=== PATIENT | male | born 1995 | race Caucasian/White ===

== ENCOUNTER 2017-08-05 12:54 | Emergency (ER) | payer SELFPAY ==
--- NOTE | 2017-08-05 13:25 | ERPHSYRPT ---
- History of Present Illness Time Seen by Provider: 08/05/17 13:18 Source: patient Exam Limitations: no limitations Patient Subjective Stated Complaint: pt here for cough and burning in chest when cold air outside hits him, hes family at home are ill, co cough, sob at times. no fever Triage Nursing Assessment: pt alert, walked in, resp easy chest clear, skin w/d pink Physician History: 21-year-old white male arrives with complaint of cough burning in the anterior chest with a deep breathing symptoms since yesterday he denies any fevers no nausea no vomiting states he feels short of breath at time. Past medical history negative. Past surgical history myringotomy tubes Social history positive for tobacco use, occasional alcohol use Timing/Duration: yesterday Cough Quality/Degree: mild Possible Cause: no prior episodes Modifying Factors: Improves With: nothing, other (cold air outside) Associated Symptoms: cough, shortness of breath, other (burning anterior chest with deep breathing), No fever, No chills, No chest pain/soreness, No dizziness , No earache, No facial pain, No headache, No lightheadedness, No muscle aches, No nasal congestion, No nasal drainage, No sinus infection, No sore throat, No wheezing Allergies/Adverse Reactions: ibuprofen [From Motrin] Adverse Reaction (Verified 08/05/17 12:59) Home Medications: No Home Meds [No Home Meds] 1 [facility] 04/23/15 [History] Hx Tetanus, Diphtheria Vaccination/Date Given: Yes (up to date) Hx Influenza Vaccination/Date Given: No Hx Pneumococcal Vaccination/Date Given: No Immunizations Up to Date: Yes - Review of Systems Constitutional: No Fever, No Chills Eyes: No Symptoms Ears, Nose, & Throat: No Symptoms, No Ear Pain, No Ear Discharge, No Hearing Changes, No Tinnitus, No Nose Pain, No Nose Congestion, No Nose Discharge, No Sinus Drainage, No Epistaxis, No Mouth Pain, No Mouth Swelling, No Loose Teeth, No Throat Pain, No Throat Swelling, No Hoarse, No Painful Swallowing, No Snoring , No Stridor Respiratory: Cough, Dyspnea Cardiac: Other (burning anterior chest with deep breathing) Abdominal/Gastrointestinal: No Abdominal Pain, No Nausea, No Vomiting, No Diarrhea Genitourinary Symptoms: No Dysuria Musculoskeletal: No Back Pain, No Neck Pain Skin: No Rash Neurological: No Dizziness, No Focal Weakness, No Sensory Changes Psychological: No Symptoms Endocrine: No Symptoms All Other Systems: Reviewed and Negative - Past Medical History Pertinent Past Medical History: No - Past Surgical History Past Surgical History: Yes Other Surgical History: tubes in ears - Social History Smoking Status: Current every day smoker Exposure to second hand smoke: Yes Drug Use: none Patient Lives Alone: No - Nursing Vital Signs Nursing Vital Signs: Initial Vital Signs Temperature 97.9 F 08/05/17 13:00 Pulse Rate 66 08/05/17 13:00 Respiratory Rate 16 08/05/17 13:00 Blood Pressure 144/76 08/05/17 13:00 O2 Sat by Pulse Oximetry 99 08/05/17 13:00 Pain Scale Pain Intensity 0 - Physical Exam General Appearance: no apparent distress, alert Eye Exam: PERRL/EOMI, eyes nml inspection Ears, Nose, Throat Exam: normal ENT inspection, TMs normal, pharynx normal, moist mucous membranes Neck Exam: normal inspection, non-tender, supple, full range of motion Respiratory Exam: normal breath sounds, lungs clear, No respiratory distress Cardiovascular Exam: regular rate/rhythm, normal heart sounds Gastrointestinal/Abdomen Exam: soft, No tenderness Back Exam: normal inspection, No CVA tenderness, No vertebral tenderness Extremity Exam: normal inspection, normal range of motion Neurologic Exam: alert, oriented x 3, cooperative, 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, normal mood/affect, sensation nml, No motor deficits Skin Exam: normal color, warm, dry, No rash Lymphatic Exam: No adenopathy SpO2 Interpretation: normal (99%) SpO2: 99 Oxygen Delivery: Room Air - Course Nursing assessment & vital signs reviewed: Yes - Radiology Exams Chest X-ray Interpretation: Discussed w/ radiologist, Other (chest x-ray: Normal heart , lung, and bony thorax) Ordered Tests: Active Orders 24 hr Category Date Time Status CHEST 1 VIEW (PORTABLE) Stat Exams 08/05/17 13:22 Completed - Progress Progress: improved Air Movement: fair Progress Note: 08/05/17 13:41 21-year-old previously healthy white male arrives with complaint of cough worse with going outside symptoms since yesterday. He states he's had several family members that have been ill. He is not running a high fever no vomiting. Patient does smoke. Chest x-ray no acute disease process noted. Will send patient home diagnosis viral bronchitis. Viral syndrome - Departure Time of Disposition: 13:44 Departure Disposition: Home Clinical Impression: Viral bronchitis, Viral syndrome Condition: Fair Critical Care Time: No Referrals: DOCTOR,NO FAMILY [Primary Care Provider] - Instructions: Cough -- Adult Additional Instructions: Return home. Plenty of fluids. OTC cough medications as needed and directed. Tylenol every 4 hours as needed for temperature greater than 100.5 or pain. Motrin every 6 hours as needed for temperature greater than 100.5 or pain. Follow-up with your family symptoms are worse, no better in 24-48 hours or persist longer than one week. Return for acute distress or for severe symptoms. Stop smoking.
--- NOTE | 2017-08-05 13:41 | XRAY ---
Indication: Pain and burning. Cough and short of breath. Comparison: None Portable chest demonstrates normal heart, lungs, and bony thorax.
[2017-08-05 13:59] VITALS: BP 154/80; PULSE 70; O2SAT 96
== END 2017-08-05 13:59 | disposition home or self-care (01) ==
LOC: ED 12:54
DX: J20.8 Acute bronchitis due to other specified organisms (principal); B34.9 Viral infection, unspecified; Z72.0 Tobacco use
CPT/HCPCS: 71010; 99282

== ENCOUNTER 2018-01-25 10:30 | Emergency (ER) | payer BC ==
[2018-01-25 10:39] VITALS: BP 151/101; PULSE 73; O2SAT 99
--- NOTE | 2018-01-25 10:48 | ERPHSYRPT ---
- History of Present Illness Time Seen by Provider: 01/25/18 10:43 Source: patient Exam Limitations: no limitations Patient Subjective Stated Complaint: fell and caught himself yesterday evening with left hand Triage Nursing Assessment: pt alert nad orientedx3, ambualtes well gait is stead left duyen in extremely swollen, radial pulse present, cap reill immediate swollen out by thumb and 2nd digit Physician History: The patient is a 22-year-old right-handed male complaining that he slipped last night on his wet wooden deck, causing him to fall backwards onto his left hand. Today his left hand is very tender and swollen. He was over in our OB Department just prior to arrival for the imminent delivery of one of his children. The OB doctor recommended that he be seen here in the ER immediately. His past medical history is unremarkable. Occurred: yesterday Reason for Fall: slipped, fell from standing pos Injuries/Pain Location: upper extremity (left hand) Loss of Consciousness: no loss of consciousness Quality: aching, throbbing Severity of Pain-Max: severe Severity of Pain-Current: severe Modifying Factors: Improves With: nothing Allergies/Adverse Reactions: ibuprofen [From Motrin] Adverse Reaction (Verified 08/05/17 12:59) Home Medications: No Home Meds [No Home Meds] 1 [facility] 04/23/15 [History] Hx Tetanus, Diphtheria Vaccination/Date Given: Yes Hx Influenza Vaccination/Date Given: No Hx Pneumococcal Vaccination/Date Given: No Immunizations Up to Date: Yes - Review of Systems Constitutional: No Fever, No Chills Eyes: No Symptoms Ears, Nose, & Throat: No Symptoms Respiratory: No Cough, No Dyspnea Cardiac: No Chest Pain, No Edema, No Syncope Abdominal/Gastrointestinal: No Abdominal Pain, No Nausea, No Vomiting, No Diarrhea Genitourinary Symptoms: No Dysuria Musculoskeletal: Fall, Injury Skin: No Rash Neurological: No Dizziness, No Focal Weakness, No Sensory Changes Psychological: No Symptoms Endocrine: No Symptoms Hematologic/Lymphatic: No Symptoms Immunological/Allergic: No Symptoms All Other Systems: Reviewed and Negative - Past Medical History Pertinent Past Medical History: No - Past Surgical History Past Surgical History: Yes Other Surgical History: tubes in ears - Social History Smoking Status: Current every day smoker Exposure to second hand smoke: Yes Drug Use: none Patient Lives Alone: No - Nursing Vital Signs Nursing Vital Signs: Initial Vital Signs Temperature 98 F 01/25/18 10:30 Pulse Rate 73 01/25/18 10:30 Respiratory Rate 18 01/25/18 10:30 Blood Pressure 151/101 01/25/18 10:30 O2 Sat by Pulse Oximetry 99 01/25/18 10:30 Pain Scale Pain Intensity 10 - Gilbert Coma Score Best Eye Response (Anali): (4) open spontaneously Best Verbal Response (Gilbert): (5) oriented Best Motor Response (Gilbert): (6) obeys commands Anali Total: 15 - Physical Exam General Appearance: no apparent distress, alert Head Injury: no evidence of injury Eye Exam: PERRL/EOMI ENT Exam: airway nml Neck Exam: normal inspection, No tenderness Respiratory/Chest Exam: normal breath sounds, No chest tenderness, No respiratory distress Cardiovascular Exam: normal heart sounds, regular rate/rhythm Gastrointestinal Exam: soft, No tenderness, No distention, No guarding, No ecchymosis Rectal Exam: not done Back Exam: normal inspection, No vertebral tenderness Extremity Exam: limited range of motion (of left hand and wrist.), pain with movement (left hand and wrist), swelling (left thenar emminence.), tenderness ( swelling and tenderness of base of left thumb.) Neurologic Exam: alert, oriented x 3, cooperative, sensation nml, No motor deficits Skin Exam: normal color, warm, dry SpO2 Interpretation: normal SpO2: 99 Oxygen Delivery: Room Air - Radiology Exams Left Wrist X-ray Interpretation: Reviewed by , Teleradiologist Report, Negative, No Fracture (per Dr Galindo.) Left Hand X-ray Interpretation: Reviewed by me, Teleradiologist Report, Negative, No Fracture (per Dr Galindo.) Ordered Tests: Active Orders 24 hr Category Date Time Status Cold Application STAT Care 01/25/18 10:43 Active HAND (MINIMUM 3 VIEWS) Stat Exams 01/25/18 10:44 Completed WRIST (MIN 3 VIEWS) Stat Exams 01/25/18 10:44 Completed - Progress Progress: unchanged Counseled pt/family regarding: rad results - Departure Time of Disposition: 11:26 Departure Disposition: Home Clinical Impression: Sprain of left hand Condition: Stable Critical Care Time: No Referrals: DOCTOR,NO FAMILY [Primary Care Provider] - Additional Instructions: You have sprained your left hand. There are no broken bones on the x-ray. You were given Tylenol 1000 mg orally in the ER. Apply ice frequently as needed. Take Tylenol 1000 mg every 6-8 hours as needed. Follow-up as needed.
--- NOTE | 2018-01-25 11:20 | XRAY ---
Indication: Pain following fall. Comparison: None 3 views of the left hand demonstrates normal bones, articulation, and soft tissues.
--- NOTE | 2018-01-25 11:20 | XRAY ---
Indication: Pain following fall. Comparison: None 3 views of the left wrist demonstrates normal bones, articulation, and soft tissues.
[2018-01-25] MEDS ORDERED: TYLENOL EXTRA STRENGTH 500 MG PO STA (11:24)
[2018-01-25] MEDS ORDERED: TYLENOL EXTRA STRENGTH 500 MG ONE (11:27)
== END 2018-01-25 11:43 | disposition home or self-care (01) ==
LOC: ED 10:30
DX: S63.92XA Sprain of unspecified part of left wrist and hand, initial encounter (principal); W01.0XXA Fall on same level from slipping, tripping and stumbling without subsequent striking against object, initial encounter; Y92.009 Unspecified place in unspecified non-institutional (private) residence as the place of occurrence of the external cause
CPT/HCPCS: 73110; 73130; 99283; A9270-GY

== ENCOUNTER 2022-02-06 16:05 | Emergency (ER) | payer SELFPAY ==
--- NOTE | 2022-02-06 16:37 | ERPHSYRPT ---
- History of Present Illness Source: patient Exam Limitations: no limitations Patient Subjective Stated Complaint: C/O headache to mid to left side of forehead that started 6 days ago. Denies any injury to head or face. Denies falls. Triage Nursing Assessment: Patient ambulated back to ED without difficulties. No SOB. Alert and oriented and answering questions appropriately. Corner of left side of mouth noted to be drooping but patient states this is his normal state; diagnosis of mobias syndrome. Physician History: 26 yo wm w L frontal headache x 6 days. Pain is 8/10 and sharp. Tylenol makes the pain better, and nothing makes it worse. He denies trauma/N/V/neck stiffness/fever/photophobia/cough/coryza. Pt did state that he got bit by a tick on his RUE 2 wks ago, but rash/myalgias/arthralias denied. 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 Timing/Duration: other (6 days) Quality: stabbing Head Pain Location: frontal (L frontal) Severity of Pain-Max: severe Severity of Pain-Current: severe Recent Head Trauma: no recent headache/trauma Modifying Factors: Worsens With: cold therapy, exposure to light, immobilization, medication, movement, rest, noise, position Associated Symptoms: No confusion, No dizziness, No fatigue, No facial pain, No fever/chills, No flushing, No light-headedness, No loss of consciousness, No nausea/vomiting, No nasal congestion, No nasal drainage, No neck pain, No numbness in legs/feet, No rash, No sweating, No scotoma, No seizures, No sinus infection, No sensitive to light, No speech problems, No stiff neck, No trouble walking, No vision changes, No visual disturbance, No weakness Previous symptoms: no prior history Allergies/Adverse Reactions: ibuprofen [From Motrin] Adverse Reaction (Verified 02/06/22 16:11) Home Medications: No Home Meds [No Home Meds] 1 [facility] 04/23/15 [History] Hx Tetanus, Diphtheria Vaccination/Date Given: Yes Hx Influenza Vaccination/Date Given: No Hx Pneumococcal Vaccination/Date Given: No Immunizations Up to Date: Yes Travel Risk - International Travel Have you traveled outside of the country in past 3 weeks: No - Coronavirus Screening Are you exhibiting any of the following symptoms?: Yes Symptoms: Headaches/Body Aches/Fatigue Close contact with a COVID-19 positive Pt in past 14-21 Days: No - Vaccine Status Have you recieved a Covid-19 vaccination: No - Review of Systems Constitutional: No Symptoms Eyes: No Symptoms Ears, Nose, & Throat: No Symptoms Respiratory: No Symptoms Cardiac: No Symptoms Abdominal/Gastrointestinal: No Symptoms Genitourinary Symptoms: No Symptoms Musculoskeletal: No Symptoms Skin: No Symptoms Neurological: No Symptoms, Headache Psychological: No Symptoms Endocrine: No Symptoms Hematologic/Lymphatic: No Symptoms Immunological/Allergic: No Symptoms - Past Medical History Pertinent Past Medical History: Yes Neurological History: Other ENT History: No Pertinent History Cardiac History: No Pertinent History Respiratory History: No Pertinent History Endocrine Medical History: No Pertinent History Musculoskeletal History: No Pertinent History GI Medical History: No Pertinent History History: No Pertinent History Psycho-Social History: No Pertinent History Male Reproductive Disorders: No Pertinent History 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 - Past Surgical History Past Surgical History: Yes Other Surgical History: tubes in ears - Social History Smoking Status: Current every day smoker How long have you smoked: 6 years Exposure to second hand smoke: No Drug Use: none Patient Lives Alone: No Significant Family History: no pertinent family hx - Nursing Vital Signs Nursing Vital Signs: Initial Vital Signs Temperature 98.2 F 02/06/22 16:12 Pulse Rate 93 H 02/06/22 16:12 Respiratory Rate 18 02/06/22 16:12 Blood Pressure 143/86 02/06/22 16:12 O2 Sat by Pulse Oximetry 97 02/06/22 16:12 Pain Scale Pain Intensity 4 Mildly hypertensive - Physical Exam General Appearance: no apparent distress Eye Exam: PERRL/EOMI, eyes nml inspection Ears, Nose, Throat Exam: normal ENT inspection, TMs normal, pharynx normal, moist mucous membranes Neck Exam: normal inspection, non-tender, supple, full range of motion, No meningismus, No mass, No Brudzinski, No Kernig's, No carotid bruit Respiratory Exam: normal breath sounds, lungs clear, airway intact, No chest tenderness, No respiratory distress Cardiovascular Exam: regular rate/rhythm, normal heart sounds, normal peripheral pulses, capillary refill <2 sec, No murmur Gastrointestinal/Abdominal Exam: soft, normal bowel sounds, tenderness Back Exam: normal inspection, normal range of motion, No CVA tenderness, No vertebral tenderness Extremity Exam: normal inspection, normal range of motion Mental Status Exam: alert, oriented x 3, 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 Exam: normal hearing, normal speech, PERRL, facial droop (Chronic on L), No abnormal gag reflex Coordination/Gait Exam: normal finger to nose, normal gait, normal cerebellar function, negative Romberg's sign Motor/Sensory Exam: no motor deficit, no sensory deficit, no pronator drift, negative Babinski's sign DTR Exam: bicep (R): 2+, bicep (L): 2+ Skin Exam: normal color, warm, dry Lymphatic Exam: No adenopathy SpO2 Interpretation: normal SpO2: 97 - Course Nursing assessment & vital signs reviewed: Yes - CT Exams Head CT Interpretation: Discussed w/radiologist (L frontal, L ethmoid, L maxillary sinusitis) Ordered Tests: Active Orders 24 hr Category Date Time Status HEAD WITHOUT CONTRAST [CT] Stat Exams 02/06/22 16:29 Completed CBC W DIFF Stat Lab 02/06/22 17:16 Completed CMP Stat Lab 02/06/22 17:16 Completed Lab/Rad Data: Laboratory Result Diagrams 02/06/22 17:16 02/06/22 17:16 Laboratory Results 02/06/22 02/06/22 02/06/22 Range/Units 17:16 17:16 17:16 WBC 11.0 H (4.0-10.5) x10^3/uL RBC 4.81 (4.1-5.6) x10^6/uL Hgb 15.9 (12.5-18.0) g/dL Hct 43.8 (42-50) % MCV 91.1 (78-100) fL MCH 33.1 H (26-32) pg MCHC 36.3 H (32-36) g/dL RDW 11.4 L (11.5-14.0) % Plt Count 219 (150-450) x10^3/uL MPV 12.7 H (7.5-11.0) fL Gran % 70.6 H (36.0-66.0) % Immature Gran % (Auto) 0.4 (0.00-0.4) % Nucleat RBC Rel Count 0.0 (0.00-0.1) % Eos # (Auto) 0.26 (0-0.5) x10^3/uL Immature Gran # (Auto) 0.04 H (0.00-0.03) x10^3u/L Absolute Lymphs (auto) 2.26 (1.0-4.6) x10^3/uL Absolute Monos (auto) 0.59 (0.0-1.3) x10^3/uL Absolute Nucleated RBC 0.00 (0.00-0.01) x10^3u/L Lymphocytes % 20.6 L (24.0-44.0) % Monocytes % 5.4 (0.0-12.0) % Eosinophils % 2.4 (0.00-5.0) % Basophils % 0.6 (0.0-0.4) % Absolute Granulocytes 7.76 H (1.4-6.9) x10^3/uL Basophils # 0.07 (0-0.4) x10^3/uL Sodium 140 (137-145) mmol/L Potassium 3.7 (3.5-5.1) mmol/L Chloride 106 (98-107) mmol/L Carbon Dioxide 25 (22-30) mmol/L Anion Gap 13.1 (5-15) MEQ/L BUN 14 (9-20) mg/dL Creatinine 0.99 (0.66-1.25) mg/dL Estimated GFR > 60.0 ML/MIN Glucose 133 H (74-106) mg/dL Calcium 9.2 (8.4-10.2) mg/dL Total Bilirubin 0.60 (0.2-1.3) mg/dL AST 40 (17-59) U/L ALT 27 (0-50) U/L Alkaline Phosphatase 65 (38-126) U/L Serum Total Protein 7.5 (6.3-8.2) g/dL Albumin 4.5 (3.5-5.0) g/dL Influenza Type A Ag NEGATIVE (NEGATIVE) Influenza Type B Ag NEGATIVE (NEGATIVE) RSV (PCR) NEGATIVE (Negative) SARS-CoV-2 (PCR) NEGATIVE (NEGATIVE) - Progress Progress Note: 02/06/22 17:46 Pt refuses pain meds 02/06/22 20:33 Pain most likely due to extensive L frontal/ethmoid/maxillary sinusitis Counseled pt/family regarding: lab results, diagnosis, need for follow-up, rad results - Departure Departure Disposition: Home Clinical Impression: Sinusitis Condition: Stable Critical Care Time: No Referrals: DOCTOR,NO FAMILY [Primary Care Provider] - Follow up/PCP as directed Instructions: Sinusitis, Adult (DC), Headache, Adult (DC) Additional Instructions: Tylenol for pain Start Augmentin twice a day for 10 days Follow up with your family MD next week Return to ER for increasing pain or temperature greater than 100.5 Prescriptions: Amox Tr/Potass Clav. 875 mg [Augmentin 875-125 Tablet] 875 mg PO BID #20 t dianet
[2022-02-06 17:16] VITALS: BP 131/74
--- NOTE | 2022-02-06 17:19 | XRAY ---
Exam: CT of the head without IV contrast. CTDI: 53.92 mGy Comparison: [None.] Indication: 26-year-old male with tick bite 2 weeks ago; worsening headache over past 2 days. Technique: Non-IV contrast axial images were obtained through the brain. Reconstructed coronal and sagittal images were created and reviewed. Findings: The ventricles appear of normal size and configuration. No focal mass effect or midline shift is seen. No acute intracranial bleed or abnormal extra-axial fluid collection is seen. Reed matter-white matter differentiation appears unremarkable. No low attenuation infarct is seen. The cortical sulci appear unremarkable. There is some circumferential mucosal thickening within the inferior aspect of the left maxillary sinus with perhaps a small amount of fluid layering posteriorly. In addition, soft tissue density is seen within the anterior aspect of the left ethmoid sinus, the frontal-ethmoid recess on the left, and the left side of the frontal sinuses. There may be some fluid within the left frontal sinus, as there appears to be some layering posteriorly. These findings are consistent with sinusitis. The remainder the paranasal sinuses appears clear. Only a small amount of pneumatization of the mastoid air cells is seen. No mastoid effusion is seen. The middle ear cavities appear unremarkable. The calvarium is intact. Impression: 1. CT findings consistent with sinusitis affecting the left frontal sinus and left frontoethmoid recess, anterior aspect of the left ethmoid sinus, and the left maxillary sinus. I cannot exclude some fluid within the posterior aspect of the left maxillary sinus and the left frontal sinus. Correlate clinically. 2. No acute intracranial bleed or other acute intracranial process is seen.
[2022-02-06 17:21] LABS: Absolute Neutrophil Ct (ANC) 7.76 x10^3/uL (1.4-6.9); Basophil (Absolute #) 0.07 x10^3/uL (0-0.4); Eosinophil % 2.4 % (0.00-5.0); Eosinophil (Absolute #) 0.26 x10^3/uL (0-0.5); Hematocrit 43.8 % (42-50); Hemoglobin 15.9 g/dL (12.5-18.0); Lymphocyte (Absolute #) 2.26 x10^3/uL (1.0-4.6); Lymphocytes % 20.6 % (24.0-44.0); Mean Cell Volume 91.1 fL (78-100); Mean Corpuscular Hemoglobin 33.1 pg (26-32); Mean Corpuscular Hgb Concent. 36.3 g/dL (32-36); Mean Platelet Volume 12.7 fL (7.5-11.0); Monocyte (Absolute #) 0.59 x10^3/uL (0.0-1.3); Monocytes % 5.4 % (0.0-12.0); Neutrophil % 70.6 % (36.0-66.0); Platelet Count 219 x10^3/uL (150-450); Red Blood Count 4.81 x10^6/uL (4.1-5.6); Red Cell Distribution Width 11.4 % (11.5-14.0)
[2022-02-06 17:35] LABS: ALBUMIN 4.5 g/dL (3.5-5.0); ALKALINE PHOSPHATASE 65 U/L (38-126); ANION GAP 13.1 MEQ/L (5-15); BLOOD UREA NITROGEN 14 mg/dL (9-20); CHLORIDE 106 mmol/L (98-107); Calcium 9.2 mg/dL (8.4-10.2); Carbon Dioxide 25 mmol/L (22-30); Creatinine 1 0.99 mg/dL (0.66-1.25); EST GLOMERULAR FILTRATION RATE > 60.0 ML/MIN; Glucose 133 mg/dL (74-106); Potassium 3.7 mmol/L (3.5-5.1); SGOT/AST 40 U/L (17-59); SGPT/ALT 27 U/L (0-50); SODIUM 140 mmol/L (137-145); Total Protein 7.5 g/dL (6.3-8.2)
[2022-02-06 17:46] VITALS: PULSE 52
[2022-02-06 17:49] VITALS: O2SAT 97
[2022-02-06 18:01] LABS: INFLUENZA A NEGATIVE (NEGATIVE); INFLUENZA B NEGATIVE (NEGATIVE); RESPIRATORY SYNCTIAL VIRUS NEGATIVE (Negative); SARS-CoV-2 Xpert Express NEGATIVE (NEGATIVE)
== END 2022-02-06 17:54 | disposition home or self-care (01) ==
LOC: ED 16:05
DX: J32.8 Other chronic sinusitis (principal); R51.9 Headache, unspecified; Q87.0 Congenital malformation syndromes predominantly affecting facial appearance; R29.810 Facial weakness; Z72.0 Tobacco use; Z28.310 Unvaccinated for COVID-19
CPT/HCPCS: 0241U; 36415; 70450; 80053; 85025; 99283

== ENCOUNTER 2024-04-18 17:10 | Emergency (ER) | payer MEDICAID ==
[2024-04-18 17:19] VITALS: TEMP 98.2
--- NOTE | 2024-04-18 17:36 | ERPHSYRPT ---
- History of Present Illness Time Seen by Provider: 04/18/24 17:16 Source: patient Exam Limitations: no limitations Patient Subjective Stated Complaint: C/O intermittent chest pain. States dull pain to left chest around 1pm today. No current pain at this time. Denies N/V. Triage Nursing Assessment: Patient ambulated back to ER without difficulties. He is alert and oriented. NO SOB. No cough. No edema. Skin tone normal. Physician History: Patient is here with chest pain. Left-sided. States it has been intermittent for 2 to 3 days. Currently chest pain-free. No falls no trauma. No fever no chills. No history of cardiac issues. Patient states he may have been told he had a "murmur" when he was younger. Patient states that sometimes when he sits backwards quickly he feels a skipped beat in his chest. He is otherwise healthy. Patient is taking PO well. Same number of urinations and defecations. The patient has no signs of altered mental status, nuchal rigidity, signs of meningitis. The patient is up-to-date on all vaccinations. Patient is anxious today because his adopted father had a heart attack at age 28. He is not biologically related to this man. But he is concerned. Allergies/Adverse Reactions: ibuprofen [From Motrin] Adverse Reaction (Verified 04/18/24 17:11) Home Medications: No Home Meds [No Home Meds] 1 ea UD 04/23/15 [History] Hx Tetanus, Diphtheria Vaccination/Date Given: Yes Hx Influenza Vaccination/Date Given: No Hx Pneumococcal Vaccination/Date Given: No Immunizations Up to Date: Yes Travel Risk - International Travel Have you traveled outside of the country in past 3 weeks: No - Emerging Infectious Disease Are you exhibiting symptoms associated with any current EIDs: No - Past Medical History Pertinent Past Medical History: Yes Neurological History: Other ENT History: No Pertinent History Cardiac History: No Pertinent History Respiratory History: No Pertinent History Endocrine Medical History: No Pertinent History Musculoskeletal History: No Pertinent History GI Medical History: No Pertinent History History: No Pertinent History Psycho-Social History: No Pertinent History Male Reproductive Disorders: No Pertinent History 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 - Past Surgical History Past Surgical History: Yes Other Surgical History: tubes in ears Significant Family History: no pertinent family hx - Social History Smoking Status: Never smoker How long have you smoked: 6 years Exposure to second hand smoke: No Drug Use: none Patient Lives Alone: No - Social Determinants of Health Will the patient participate in the screening: Yes Do you worry about a steady place to live?: No Do you have any problems with any of the following?: No known problems In the past 12 months,have you had to go without utilities?: No Transportation Issues: No Has anyone in your support network made you feel unsafe?: No Have you or anyone in your house had to go without enough: No - Nursing Vital Signs Nursing Vital Signs: Initial Vital Signs Pulse Rate 85 04/18/24 17:10 Respiratory Rate 21 04/18/24 17:10 Blood Pressure 169/99 04/18/24 17:10 O2 Sat by Pulse Oximetry 98 04/18/24 17:10 Pain Scale Pain Intensity 0 - Physical Exam SpO2: 98 Comments: 04/18/24 17:35 Review of Systems Constitutional: Negative for fever. HENT: Negative for congestion. Respiratory: Negative for shortness of breath. Cardiovascular: Chest pain Gastrointestinal: Negative for abdominal pain. Genitourinary: Negative for dysuria. Musculoskeletal: Negative for back pain. Skin: Negative for rash. Neurological: Negative for headaches. Psychiatric/Behavioral: Negative for behavioral problems. All other systems reviewed and are negative. Physical Exam Vitals signs and nursing note reviewed. Constitutional: Appearance: Patient is well-developed. HENT: Head: Normocephalic and atraumatic. Eyes: Conjunctiva/sclera: Conjunctivae normal. Neck: Musculoskeletal: Normal range of motion. Trachea: No tracheal deviation. Cardiovascular: Rate and Rhythm: Normal rate. Pulmonary: Effort: Pulmonary effort is normal. No respiratory distress. Abdominal: Palpations: Abdomen is soft. Musculoskeletal: General: No deformity. Skin: General: Skin is warm and dry. Neurological/ Psychiatric: Mental Status: Mental status, behavior, interaction with environment is appropriate for patient's age and condition - Course Nursing assessment & vital signs reviewed: Yes EKG Interpreted by Me: Sinus Rhythm Ordered Tests: Active Orders 24 hr Category Date Time Status Automation Lead STAT Care 04/18/24 17:30 Active EKG-ER Only STAT Care 04/18/24 17:30 Active IV Insertion STAT Care 04/18/24 17:30 Active CHEST 1 VIEW (PORTABLE) Stat Exams 04/18/24 17:30 Taken CBC W DIFF Stat Lab 04/18/24 17:30 Completed CK-Creatinine Phosphokinase Stat Lab 04/18/24 17:30 Completed CMP Stat Lab 04/18/24 17:30 Completed D-DIMER QUANTITATIVE Stat Lab 04/18/24 17:30 Completed NT PRO BNPII Stat Lab 04/18/24 17:30 Completed TROPONIN Q4H Lab 04/18/24 17:30 Completed TROPONIN Q4H Lab 04/18/24 21:30 Ordered TROPONIN Q4H Lab 04/19/24 01:30 Ordered Medication Summary Discontinued Medications Generic Name Dose Route Start Last Admin Trade Name Shayla PRN Reason Stop Dose Admin Aspirin 324 mg 04/18/24 17:30 04/18/24 17:41 Aspirin 81 Mg Tab.Chew PO 04/18/24 17:31 324 mg STAT ONE Administration Aspirin Confirm 04/18/24 17:41 Aspirin 81 Mg Tab.Chew Administered 04/18/24 17:42 Dose 324 mg .ROUTE .CardKill-MED ONE Lab/Rad Data: Laboratory Result Diagrams 04/18/24 17:30 04/18/24 17:30 Laboratory Results 04/18/24 04/18/24 04/18/24 Range/Units 17:30 17:30 17:30 WBC (4.23-9.07) x10^3/uL RBC (4.63-6.08) x10^6/uL Hgb (13.7-17.5) g/dL Hct (40.1-51.0) % MCV (79.0-92.2) fL MCH (25.7-32.2) pg MCHC (32.3-36.5) g/dL RDW (11.6-14.4) % Plt Count (163-337) x10^3/uL MPV (9.4-12.4) fL Gran % (34.0-67.9) % Immature Gran % (Auto) (0.001-0.429) % Nucleat RBC Rel Count (0.00-0.2) % Eos # (Auto) (0.04-0.54) x10^3/uL Immature Gran # (Auto) (0.001-0.031) x10^3u/L Absolute Lymphs (auto) (1.32-3.57) x10^3/uL Absolute Monos (auto) (0.30-0.82) x10^3/uL Absolute Nucleated RBC (0.00-0.012) x10^3u/L Lymphocytes % (21.8-53.1) % Monocytes % (5.3-12.2) % Eosinophils % (0.8-7.0) % Basophils % (0.2-1.2) % Absolute Granulocytes (1.78-5.38) x10^3/uL Basophils # (0.01-0.08) x10^3/uL D-Dimer < 0.19 (0.0-0.50) mg/L Sodium 141 (135-145) mmol/L Potassium 3.7 (3.5-5.1) mmol/L Chloride 105 (98-107) mmol/L Carbon Dioxide 24 (22-30) mmol/L Anion Gap 15.6 H (5-15) MEQ/L BUN 19 (9-20) mg/dL Creatinine 1.19 (0.66-1.25) mg/dL Estimated GFR 85.3 ML/MIN Glucose 135 H (74-106) mg/dL Calcium 9.8 (8.4-10.2) mg/dL Total Bilirubin 1.50 H (0.2-1.3) mg/dL AST 51 (17-59) U/L ALT 77 H (0-50) U/L Alkaline Phosphatase 57 (38-126) U/L Creatine Kinase 113 (55-170) U/L Troponin I < 0.012 (0.000-0.033) ng/mL NT-Pro-B Natriuret Pep 24.6 (<300) pg/mL Serum Total Protein 8.3 H (6.3-8.2) g/dL Albumin 5.1 H (3.5-5.0) g/dL 04/18/24 Range/Units 17:30 WBC 7.9 (4.23-9.07) x10^3/uL RBC 5.29 (4.63-6.08) x10^6/uL Hgb 17.3 (13.7-17.5) g/dL Hct 47.1 (40.1-51.0) % MCV 89.0 (79.0-92.2) fL MCH 32.7 H (25.7-32.2) pg MCHC 36.7 H (32.3-36.5) g/dL RDW 11.1 L (11.6-14.4) % Plt Count 203 (163-337) x10^3/uL MPV 14.0 H (9.4-12.4) fL Gran % 61.1 (34.0-67.9) % Immature Gran % (Auto) 0.4 (0.001-0.429) % Nucleat RBC Rel Count 0.0 (0.00-0.2) % Eos # (Auto) 0.12 (0.04-0.54) x10^3/uL Immature Gran # (Auto) 0.03 (0.001-0.031) x10^3u/L Absolute Lymphs (auto) 2.43 (1.32-3.57) x10^3/uL Absolute Monos (auto) 0.43 (0.30-0.82) x10^3/uL Absolute Nucleated RBC 0.00 (0.00-0.012) x10^3u/L Lymphocytes % 30.9 (21.8-53.1) % Monocytes % 5.5 (5.3-12.2) % Eosinophils % 1.5 (0.8-7.0) % Basophils % 0.6 (0.2-1.2) % Absolute Granulocytes 4.81 (1.78-5.38) x10^3/uL Basophils # 0.05 (0.01-0.08) x10^3/uL D-Dimer (0.0-0.50) mg/L Sodium (135-145) mmol/L Potassium (3.5-5.1) mmol/L Chloride (98-107) mmol/L Carbon Dioxide (22-30) mmol/L Anion Gap (5-15) MEQ/L BUN (9-20) mg/dL Creatinine (0.66-1.25) mg/dL Estimated GFR ML/MIN Glucose (74-106) mg/dL Calcium (8.4-10.2) mg/dL Total Bilirubin (0.2-1.3) mg/dL AST (17-59) U/L ALT (0-50) U/L Alkaline Phosphatase (38-126) U/L Creatine Kinase (55-170) U/L Troponin I (0.000-0.033) ng/mL NT-Pro-B Natriuret Pep (<300) pg/mL Serum Total Protein (6.3-8.2) g/dL Albumin (3.5-5.0) g/dL - Progress Progress: improved Progress Note: 04/18/24 17:36 Differential diagnosis includes: PNA, STEMI, NSTEMI, other infection, musculoskeletal pain, pneumothorax - We'll obtain basic labs, fluids, EKG, troponin, chest x-ray - EKG shows no ST changes - my read - O2 saturations consistently greater than 95%. - CXR shows no pneumonia, pneumothorax - my read 04/18/24 18:26 Patient's troponin is negative, D-dimer negative. Therefore much less likely to be a PE or HI. Plan for discharge home at this point in time. Close follow-up with PCP. Patient has been chest pain-free greater than 8 hours. Therefore expect the troponin to be positive if he was proving having cardiac chest pain. EKG noted shows no ST changes as above. Counseled pt/family regarding: lab results, diagnosis, need for follow-up, rad results - Departure Departure Disposition: Home Clinical Impression: Chest pain Condition: Stable Critical Care Time: No Referrals: DOCTOR,NO FAMILY [Primary Care Provider] - Follow up/PCP as directed Instructions: Chest Pain (DC)
[2024-04-18] MEDS: BABY ASPIRIN 81 MG CHEW PO ONE (17:41)
[2024-04-18] MEDS ORDERED: BABY ASPIRIN 81 MG CHEW ONE (17:41)
[2024-04-18 17:47] LABS: Absolute Neutrophil Ct (ANC) 4.81 x10^3/uL (1.78-5.38); BASOPHIL % 0.6 % (0.2-1.2); Basophil (Absolute #) 0.05 x10^3/uL (0.01-0.08); Eosinophil % 1.5 % (0.8-7.0); Eosinophil (Absolute #) 0.12 x10^3/uL (0.04-0.54); Hematocrit 47.1 % (40.1-51.0); Hemoglobin 17.3 g/dL (13.7-17.5); IMMATURE GRAN # 0.03 x10^3u/L (0.001-0.031); IMMATURE GRAN % 0.4 % (0.001-0.429); Lymphocyte (Absolute #) 2.43 x10^3/uL (1.32-3.57); Lymphocytes % 30.9 % (21.8-53.1); Mean Corpuscular Hemoglobin 32.7 pg (25.7-32.2); Mean Corpuscular Hgb Concent. 36.7 g/dL (32.3-36.5); Monocyte (Absolute #) 0.43 x10^3/uL (0.30-0.82); Monocytes % 5.5 % (5.3-12.2); Neutrophil % 61.1 % (34.0-67.9); Platelet Count 203 x10^3/uL (163-337); Red Blood Count 5.29 x10^6/uL (4.63-6.08); Red Cell Distribution Width 11.1 % (11.6-14.4); White Blood Count 7.9 x10^3/uL (4.23-9.07)
[2024-04-18 18:12] LABS: ALBUMIN 5.1 g/dL (3.5-5.0); ALKALINE PHOSPHATASE 57 U/L (38-126); ANION GAP 15.6 MEQ/L (5-15); BLOOD UREA NITROGEN 19 mg/dL (9-20); CHLORIDE 105 mmol/L (98-107); CK-Creatinine Phosphokinase 113 U/L (55-170); Calcium 9.8 mg/dL (8.4-10.2); Carbon Dioxide 24 mmol/L (22-30); Creatinine 1 1.19 mg/dL (0.66-1.25); EST GLOMERULAR FILTRATION RATE 85.3 ML/MIN; Glucose 135 mg/dL (74-106); Potassium 3.7 mmol/L (3.5-5.1); SGOT/AST 51 U/L (17-59); SGPT/ALT 77 U/L (0-50); SODIUM 141 mmol/L (135-145); TROPONIN < 0.012 ng/mL (0.000-0.033); Total Protein 8.3 g/dL (6.3-8.2)
[2024-04-18 18:30] VITALS: BP 138/96; PULSE 80; RESP 16; O2SAT 97
--- NOTE | 2024-04-19 08:40 | XRAY ---
Indication: Chest pain. Comparison: August 05, 2017 Portable apical lordotic chest again demonstrates normal heart, lungs, and bony thorax with a few incidental tiny calcified granulomas.
== END 2024-04-18 18:35 | disposition home or self-care (01) ==
LOC: ED 17:10
DX: R07.9 Chest pain, unspecified (principal)
CPT/HCPCS: 36000; 36415; 71045; 80053; 82550; 83880; 84484; 85025; 85379; 93005; 93041; 99284; A9270-GY